=== PATIENT | male | born 1950 | race Caucasian/White ===

== ENCOUNTER 2016-08-14 09:51 | Emergency (ER) | payer OTHER ==
[~2016-08-14] VITALS: Ht 160 cm; Wt 79.8 kg
[~2016-08-14 09:51] MED LIST: ALFALFA1 EACH PO; ALPRAZOLAM0.25 M2 PO; ASPIR 8181 M1 PO; ASPIR-TRIN325 M1 PO; CARDIOVID PLUS1 EACH PO; CENTRUM SILVER1 EAC3 PO; GARLIC1 EACH PO; LISINOPRIL-HCT1 EACH PO; LISINOPRIL5 MG PO; METOPROLOL SUCC50 MG PO; NASACORT10.8 ML BOTH NARES; NASALCROM NASAL13 ML BOTH NARES; OMEGA-31000 M1 PO; OMEPRAZOLE20 MG PO; PERCOCET 5/31 TABLET PO; SIMVASTATIN20 MG PO; SIMVASTATIN40 MG PO; SYNTHROID100 MCG PO; ZOFRAN ODT4 MG PO
[2016-08-14] MEDS ORDERED: ZITHROMAX Z-PA250 MG PO (14:00)
[2016-08-14] MEDS ORDERED: VENTOLIN HFA18 GM IH (14:13)
[2016-08-14 15:38] VITALS: BP 124/74
== END 2016-08-14 15:38 | disposition home or self-care (01) ==
LOC: EME 09:51
DX: J06.9 Acute upper respiratory infection, unspecified (principal); J44.9 Chronic obstructive pulmonary disease, unspecified; I10 Essential (primary) hypertension; I25.2 Old myocardial infarction; K21.9 Gastro-esophageal reflux disease without esophagitis; Z87.442 Personal history of urinary calculi; Z87.891 Personal history of nicotine dependence; Z95.1 Presence of aortocoronary bypass graft
CPT/HCPCS: 71020; 87651 90; 99281; 99283

== ENCOUNTER → 2016-10-16 | Outpatient (CLI) | payer OTHER ==
[~2016-10-16] VITALS: Ht 160 cm; Wt 74.8 kg
[~2016-10-16] MED LIST changes: +VENTOLIN HFA18 GM IH; +ZITHROMAX Z-PA250 MG PO
[2016-10-16 09:44] LABS: HEMATOCRIT 58.4 % (38.0-50.0); MCH 23.9 PG (29.0-34.0); MCHC 31.8 G/DL (30.0-36.0); MCV 75.2 FL (86-99); MEAN PLAT.VOLUME 9.1 uM^3 (9.0-12.4); PLATELET COUNT 531 K/uL (156-360); RBC DIS.WIDTH-CV 19.8 % (11.8-14.6); RBC DIS.WIDTH-SD 46.9 % (39-53); RED BLOOD COUNT 7.77 M/uL (4.00-5.50); WHITE BLOOD COUNT 12.9 K/uL (4.1-10.2)
== END | disposition home or self-care (01) ==
LOC: EDSTATUS 10-05 09:00 → OPR 10-05 09:00
PROVIDERS: Internal Medicine Pulmonary Disease
PROC: 0BBF3ZX Excision of Right Lower Lung Lobe, Percutaneous Approach, Diagnostic (ICD-10-PCS; principal; 2016-10-16)
DX: C34.31 Malignant neoplasm of lower lobe, right bronchus or lung (principal); Z87.891 Personal history of nicotine dependence; I25.10 Atherosclerotic heart disease of native coronary artery without angina pectoris; R76.11 Nonspecific reaction to tuberculin skin test without active tuberculosis
CPT/HCPCS: 71010; 77012; 85027; 88305; 88341 TC; 88342 TC; J3010

== ENCOUNTER → 2016-11-01 | Outpatient (CLI) | payer OTHER ==
[2016-11-01 11:55] LABS: BASE EXCESS -0.7 mEq/L (-3 to +3); BICARBONATE 24.2 mEq/L (22-26); CARBOXY HGB 1.7 % (0-5); COMMENTS - BLOOD GASES A+C+; DEVICE RA; PCO2 40 mm Hg (35-45); PO2 71 mm Hg (80-100); SITE LR; TOTAL RESP RATE 18 resp/min; pH 7.39 (7.35-7.45)
== END | disposition home or self-care (01) ==
LOC: RES 11:36
PROVIDERS: Thoracic Surgery (Cardiothoracic Vascular Surgery)
DX: C34.90 Malignant neoplasm of unspecified part of unspecified bronchus or lung (principal)
CPT/HCPCS: 36600; 82803

== ENCOUNTER → 2016-11-15 | Outpatient (CLI) | payer OTHER, MEDICARE ==
[~2016-11-15] VITALS: Ht 160 cm; Wt 68.0 kg
[2016-11-15 10:22] LABS: INTER. NORMALIZED RATIO 1.2; PROTHROMBIN TIME 13.3 SEC (10.2-12.9)
[2016-11-15 10:25] LABS: PTT 34.9 SEC (25-37)
== END | disposition home or self-care (01) ==
LOC: OPR 09:12 → EDSTATUS 10:00
PROVIDERS: Radiology Diagnostic Radiology
PROC: 0BBJ3ZX Excision of Left Lower Lung Lobe, Percutaneous Approach, Diagnostic (ICD-10-PCS; principal; 2016-11-15)
DX: R91.8 Other nonspecific abnormal finding of lung field (principal); C34.91 Malignant neoplasm of unspecified part of right bronchus or lung; Z87.891 Personal history of nicotine dependence
CPT/HCPCS: 71010; 77012; 85610; 85730; 88305; 88312; 88342 TC; J3010

== ENCOUNTER → 2016-11-24 | Day surgery (SDC) | payer OTHER, MEDICARE ==
[~2016-11-24] VITALS: Ht 160 cm; Wt 69.8 kg
[2016-11-24 06:11] VITALS: BP 113/68
[2016-11-24 06:16] LABS: BASOPHIL COUNT 0.1 K/uL (0-0.1); EOSINOPHIL (%) 2.5 % (0-5); EOSINOPHIL COUNT 0.4 K/uL (0-0.3); HEMATOCRIT 57.9 % (38.0-50.0); IMMATURE GRANULOCYTE COUNT 0.3 K/uL; INSTRUMENT ABS NEUTROPHIL CT 10.9 K/uL; LYMPHOCYTE COUNT 1.6 K/uL (1.0-2.8); MCH 24.4 PG (29.0-34.0); MCHC 31.4 G/DL (30.0-36.0); MCV 77.5 FL (86-99); MEAN PLAT.VOLUME 8.9 uM^3 (9.0-12.4); MONOCYTE (%) 7.3 % (3-12); NEUTROPHIL (%) 76.3 % (45-76); NEUTROPHIL COUNT 10.9 K/uL (1.8-6.4); PLATELET COUNT 550 K/uL (156-360); RBC DIS.WIDTH-CV 20.2 % (11.8-14.6); RBC DIS.WIDTH-SD 51.4 % (39-53); RED BLOOD COUNT 7.47 M/uL (4.00-5.50); WHITE BLOOD COUNT 14.3 K/uL (4.1-10.2)
[2016-11-24 06:42] LABS: CHLORIDE 100 mEq/L (99-109); SODIUM 137 mEq/L (136-147)
[2016-11-24 06:44] LABS: GLUCOSE 101 mg/dL (70-99)
[2016-11-24 06:46] LABS: ANION GAP 15 MEQ/L (2-14)
[2016-11-24 06:48] LABS: ALKALINE PHOSPHATASE 68 IU/L (3-129); GFR ESTIMATE (CALCULATED) > 59 mL/min/
[2016-11-24 06:49] LABS: UREA NITROGEN (BUN) 9 mg/dL (9-23)
== END | disposition home or self-care (01) ==
LOC: SDC 05:24 → 2SOUTH 09:42 → EDSTATUS 09:42 → SDC 10:24
PROVIDERS: Thoracic Surgery (Cardiothoracic Vascular Surgery)
DX: Z53.8 Procedure and treatment not carried out for other reasons (principal)
CPT/HCPCS: 80053; 85025; 86850; 86900; 86901; J0330; J0690; J3010

== ENCOUNTER 2016-12-08 09:47 | Day surgery (SDC) | payer OTHER, MEDICARE ==
[~2016-12-08] VITALS: Ht 160 cm; Wt 72.7 kg
[2016-12-08 10:12] LABS: BASOPHIL COUNT 0.1 K/uL (0-0.1); EOSINOPHIL (%) 3.8 % (0-5); EOSINOPHIL COUNT 0.6 K/uL (0-0.3); HEMATOCRIT 57.1 % (38.0-50.0); IMMATURE GRANULOCYTE (%) 2.6 % (0.0-0.7); IMMATURE GRANULOCYTE COUNT 0.4 K/uL; INSTRUMENT ABS NEUTROPHIL CT 11.8 K/uL; LYMPHOCYTE COUNT 2.1 K/uL (1.0-2.8); MCH 24.8 PG (29.0-34.0); MCHC 31.2 G/DL (30.0-36.0); MCV 79.5 FL (86-99); MEAN PLAT.VOLUME 9.1 uM^3 (9.0-12.4); MONOCYTE COUNT 0.8 K/uL (0-0.8); NEUTROPHIL (%) 74.8 % (45-76); NEUTROPHIL COUNT 11.8 K/uL (1.8-6.4); PLATELET COUNT 683 K/uL (156-360); RBC DIS.WIDTH-CV 18.8 % (11.8-14.6); RBC DIS.WIDTH-SD 49.5 % (39-53); RED BLOOD COUNT 7.18 M/uL (4.00-5.50); WHITE BLOOD COUNT 15.7 K/uL (4.1-10.2)
[2016-12-08 10:17] LABS: INTER. NORMALIZED RATIO 1.2; PROTHROMBIN TIME 12.8 SEC (10.2-12.9)
[2016-12-08 10:19] VITALS: BP 118/74
[2016-12-08 10:20] LABS: CHLORIDE 102 mEq/L (99-109); POTASSIUM 4.3 mEq/L (3.7-5.4); PTT 34.4 SEC (25-37)
[2016-12-08 10:21] LABS: SODIUM 138 mEq/L (136-147)
[2016-12-08 10:23] LABS: GLUCOSE 106 mg/dL (70-99)
[2016-12-08 10:24] LABS: ANION GAP 9 MEQ/L (2-14)
[2016-12-08 10:25] LABS: TOTAL BILIRUBIN 0.6 mg/dL (0.0-1.0)
[2016-12-08 10:26] LABS: ALKALINE PHOSPHATASE 62 IU/L (3-129); GFR ESTIMATE (CALCULATED) > 59 mL/min/
[2016-12-08 10:28] LABS: UREA NITROGEN (BUN) 11 mg/dL (9-23)
[2016-12-08 10:53] LABS: POINT-OF-CARE METER ID UU14174212
[2016-12-08] MEDS ORDERED: COLACE100 MG PO (13:48)
[2016-12-08] MEDS ORDERED: HYDROCODON-ACE1 EAC7 PO (13:48)
[2016-12-08 14:35] VITALS: BP 124/71
[2016-12-08 15:21] VITALS: BP 128/65
== END 2016-12-08 15:25 | disposition home or self-care (01) ==
LOC: SDC 09:47
PROVIDERS: Thoracic Surgery (Cardiothoracic Vascular Surgery)
PROC: 0WJC4ZZ Inspection of Mediastinum, Percutaneous Endoscopic Approach (ICD-10-PCS; principal; 2016-12-08)
DX: C34.31 Malignant neoplasm of lower lobe, right bronchus or lung (principal); J98.59 Other diseases of mediastinum, not elsewhere classified; D45 Polycythemia vera; I25.10 Atherosclerotic heart disease of native coronary artery without angina pectoris; I25.2 Old myocardial infarction; E11.9 Type 2 diabetes mellitus without complications; K21.9 Gastro-esophageal reflux disease without esophagitis; J44.9 Chronic obstructive pulmonary disease, unspecified; E78.5 Hyperlipidemia, unspecified; D50.9 Iron deficiency anemia, unspecified; E83.52 Hypercalcemia; Z95.1 Presence of aortocoronary bypass graft; Z87.891 Personal history of nicotine dependence; H91.90 Unspecified hearing loss, unspecified ear; Z86.19 Personal history of other infectious and parasitic diseases; Z87.11 Personal history of peptic ulcer disease; Z87.442 Personal history of urinary calculi; Z87.820 Personal history of traumatic brain injury; Z82.3 Family history of stroke; Z82.49 Family history of ischemic heart disease and other diseases of the circulatory system; Z83.3 Family history of diabetes mellitus
CPT/HCPCS: 80053; 82948; 85025; 85610; 85730; 86850; 86900; 86901; J0330; J0690; J1100; J2250; J2405; J2710; J3010

== ENCOUNTER 2016-12-21 23:26 | Inpatient (IN) | payer OTHER, MEDICARE ==
[~2016-12-21] VITALS: Ht 160 cm; Wt 67.6 kg
[~2016-12-21 23:26] MED LIST changes: +ALFALFA PO; +COLACE100 MG PO; +HYDROCODON-ACE1 EAC7 PO; +IRON325 M1 PO; +LIPITOR40 MG PO
[2016-12-22 05:46] VITALS: BP 126/84
[2016-12-22 06:56] LABS: INTER. NORMALIZED RATIO 1.2; PROTHROMBIN TIME 14.1 SEC (10.2-12.9)
[2016-12-22 06:59] LABS: PTT 37.1 SEC (25-37)
[2016-12-22 12:40] LABS: BASE EXCESS -3.9 mEq/L (-3 to +3); BICARBONATE 21.6 mEq/L (22-26); CARBOXY HGB 1.7 % (0-5); METHEMOGLOBIN 1.9 % (0-1.5); PCO2 40 mm Hg (35-45); pH 7.34 (7.35-7.45)
[2016-12-22 12:41] LABS: DEVICE PB 980; FI02 70 %; MODE SIMV PC; O2 FLOW 65 L/MIN; PO2 284 mm Hg (80-100); SITE RFEM
[2016-12-22 12:42] LABS: INSPIRATION TIME 1.45 seconds; MECHANICAL RATE 12 resp/min; PEEP 5 CM/H20; PRES. SUPPORT 5 CM/H2O; PRESSURE CONTROL VENTILATION 18 CM H20; TOTAL RESP RATE 15 resp/min
[2016-12-22 13:36] LABS: BASE EXCESS -3.9 mEq/L (-3 to +3); BICARBONATE 20.8 mEq/L (22-26); DEVICE PB 980; FI02 50 %; METHEMOGLOBIN 1.9 % (0-1.5); O2 FLOW 60 L/MIN; PCO2 36 mm Hg (35-45); PO2 194 mm Hg (80-100); SITE R FEM; pH 7.37 (7.35-7.45)
[2016-12-22 13:37] LABS: INSPIRATION TIME 1.45 seconds; MECHANICAL RATE 12 resp/min; MODE SIMV PC; PEEP 5 CM/H20; PRES. SUPPORT 5 CM/H2O; PRESSURE CONTROL VENTILATION 18 CM H20; TOTAL RESP RATE 20 resp/min
[2016-12-22 16:00] LABS: HEMATOCRIT 41.8 % (38.0-50.0); MCV 80.1 FL (86-99)
[2016-12-22 17:27] LABS: INTER. NORMALIZED RATIO 1.5; PROTHROMBIN TIME 16.9 SEC (10.2-12.9)
[2016-12-22 19:48] LABS: HEMATOCRIT 32.2 % (38.0-50.0); MCV 81.5 FL (86-99)
[2016-12-22 20:33] LABS: EOSINOPHIL (%) 0 % (0-5); IMMATURE GRANULOCYTE (%) 1.3 % (0.0-0.7); IMMATURE GRANULOCYTE COUNT 0.3 K/uL; INSTRUMENT ABS NEUTROPHIL CT 22.2 K/uL; LYMPHOCYTE COUNT 0.4 K/uL (1.0-2.8); MCH 25.2 PG (29.0-34.0); MEAN PLAT.VOLUME 9.5 uM^3 (9.0-12.4); MONOCYTE (%) 3.5 % (3-12); MONOCYTE COUNT 0.8 K/uL (0-0.8); NEUTROPHIL (%) 93.3 % (45-76); NEUTROPHIL COUNT 22.2 K/uL (1.8-6.4); PLATELET COUNT 743 K/uL (156-360); RBC DIS.WIDTH-CV 16.1 % (11.8-14.6); RBC DIS.WIDTH-SD 48.3 % (39-53); WHITE BLOOD COUNT 23.8 K/uL (4.1-10.2)
[2016-12-22 20:39] LABS: RED BLOOD COUNT 3.97 M/uL (4.00-5.50)
[2016-12-23] VITALS (37 sets, daily range): BP systolic 73–143; BP diastolic 43–86
[2016-12-23 01:30] LABS: BASE EXCESS -6.6 mEq/L (-3 to +3); CARBOXY HGB 2.6 % (0-5); DEVICE VENT; FI02 40 %; METHEMOGLOBIN 1.9 % (0-1.5); MODE AC; PCO2 49 mm Hg (35-45); PO2 111 mm Hg (80-100); SITE LB; pH 7.24 (7.35-7.45)
[2016-12-23 01:31] LABS: MECHANICAL RATE 12 resp/min; PEEP 5 CM/H20; TIDAL VOLUME 500 ML; TOTAL RESP RATE 12 resp/min
[2016-12-23 01:49] LABS: HEMATOCRIT 39.5 % (38.0-50.0); MCV 84.8 FL (86-99)
[2016-12-23 02:48] LABS: METH RESISTANT S AUREUS PCR NEGATIVE (NEGATIVE)
[2016-12-23 02:56] LABS: PROBE CHECK PASS; SPECIMEN PROCESSING CONTROL PASS
[2016-12-23 06:49] LABS: BASOPHIL COUNT 0.1 K/uL (0-0.1); EOSINOPHIL (%) 0.1 % (0-5); HEMATOCRIT 41.3 % (38.0-50.0); IMMATURE GRANULOCYTE (%) 1.7 % (0.0-0.7); IMMATURE GRANULOCYTE COUNT 0.4 K/uL; LYMPHOCYTE COUNT 1.7 K/uL (1.0-2.8); MCH 27.2 PG (29.0-34.0); MCHC 32.4 G/DL (30.0-36.0); MCV 83.9 FL (86-99); MEAN PLAT.VOLUME 9.5 uM^3 (9.0-12.4); MONOCYTE (%) 8.5 % (3-12); MONOCYTE COUNT 2.1 K/uL (0-0.8); NEUTROPHIL (%) 82.3 % (45-76); PLATELET COUNT 593 K/uL (156-360); RBC DIS.WIDTH-CV 15.9 % (11.8-14.6); RBC DIS.WIDTH-SD 48.9 % (39-53); WHITE BLOOD COUNT 24.3 K/uL (4.1-10.2)
[2016-12-23 06:50] LABS: RED BLOOD COUNT 4.92 M/uL (4.00-5.50)
[2016-12-23 07:12] LABS: ANION GAP 12 MEQ/L (2-14); CHLORIDE 107 MEQ/L (99-109); GFR ESTIMATE (CALCULATED) > 59 mL/min/; GLUCOSE 165 mg/dL (70-99); POTASSIUM 4.5 MEQ/L (3.7-5.4); SAMPLE HEMOLYSIS CHECK 0; SAMPLE ICTERIC CHECK 0; SAMPLE LIPEMIA CHECK 0; SODIUM 137 MEQ/L (136-147); UREA NITROGEN (BUN) 16 mg/dL (9-23)
[2016-12-23 18:17] LABS: Estimated Average Glucose 117 mg/dL (70-123); HEMOGLOBIN A1c (GLYCOHEMOGLOB) 5.7 % HGB (Below 5.7)
[2016-12-23 18:37] LABS: INTER. NORMALIZED RATIO 1.4; PROTHROMBIN TIME 15.9 SEC (10.2-12.9)
[2016-12-23 18:39] LABS: HDL CHOLESTEROL 13 MG/DL (Desirable>=40); LDL CHOLESTEROL 11 mg/dL (Desirable<100); NON-HDL CHOLESTEROL 33 mg/dL (Desirable<160); TOTAL CHOLESTEROL 46 mg/dL (Desirable<200); TRIGLYCERIDES 108 MG/DL (Normal: <150)
[2016-12-24] VITALS (24 sets, daily range): BP systolic 88–170; BP diastolic 58–100
[2016-12-24 05:30] LABS: HEMATOCRIT 34.3 % (38.0-50.0); MCH 28.6 PG (29.0-34.0); MCHC 33.8 G/DL (30.0-36.0); MCV 84.7 FL (86-99); MEAN PLAT.VOLUME 9.6 uM^3 (9.0-12.4); PLATELET COUNT 479 K/uL (156-360); RBC DIS.WIDTH-CV 17.2 % (11.8-14.6); RBC DIS.WIDTH-SD 52.3 % (39-53); RED BLOOD COUNT 4.05 M/uL (4.00-5.50); WHITE BLOOD COUNT 17.6 K/uL (4.1-10.2)
[2016-12-24 06:12] LABS: ANION GAP 7 MEQ/L (2-14); CHLORIDE 109 MEQ/L (99-109); GFR ESTIMATE (CALCULATED) > 59 mL/min/; POTASSIUM 4.1 MEQ/L (3.7-5.4); SAMPLE HEMOLYSIS CHECK 0; SAMPLE ICTERIC CHECK 0; SAMPLE LIPEMIA CHECK 0; SODIUM 139 MEQ/L (136-147); UREA NITROGEN (BUN) 12 mg/dL (9-23)
[2016-12-24 06:13] LABS: GLUCOSE 105 mg/dL (70-99)
[2016-12-24 18:24] LABS: POINT-OF-CARE METER ID UU14314083
[2016-12-25] VITALS (21 sets, daily range): BP systolic 85–164; BP diastolic 46–92
[2016-12-25 03:24] LABS: POINT-OF-CARE METER ID UU14314083
[2016-12-25 05:28] LABS: HEMATOCRIT 38.7 % (38.0-50.0); MCH 27.7 PG (29.0-34.0); MCHC 32.3 G/DL (30.0-36.0); MCV 85.8 FL (86-99); MEAN PLAT.VOLUME 9.5 uM^3 (9.0-12.4); PLATELET COUNT 526 K/uL (156-360); RBC DIS.WIDTH-CV 17.2 % (11.8-14.6); RBC DIS.WIDTH-SD 54.4 % (39-53); RED BLOOD COUNT 4.51 M/uL (4.00-5.50); WHITE BLOOD COUNT 15.4 K/uL (4.1-10.2)
[2016-12-25 05:55] LABS: ANION GAP 8 MEQ/L (2-14); CHLORIDE 111 MEQ/L (99-109); GFR ESTIMATE (CALCULATED) > 59 mL/min/; GLUCOSE 152 mg/dL (70-99); POTASSIUM 4.5 MEQ/L (3.7-5.4); SAMPLE HEMOLYSIS CHECK 0; SAMPLE ICTERIC CHECK 0; SAMPLE LIPEMIA CHECK 0; SODIUM 142 MEQ/L (136-147); UREA NITROGEN (BUN) 14 mg/dL (9-23)
[2016-12-25 06:44] LABS: POINT-OF-CARE METER ID UU14208751
[2016-12-25 08:21] LABS: MAGNESIUM 1.8 mg/dl (1.3-2.7)
[2016-12-25 12:15] LABS: POINT-OF-CARE METER ID UU14314083
[2016-12-25 18:15] LABS: POINT-OF-CARE METER ID UU14208751
[2016-12-26] VITALS (24 sets, daily range): BP systolic 96–154; BP diastolic 56–97
[2016-12-26 00:05] LABS: POINT-OF-CARE METER ID UU14208751
[2016-12-26 05:34] LABS: POINT-OF-CARE METER ID UU14174217
[2016-12-26 08:12] LABS: BASOPHIL COUNT 0.1 K/uL (0-0.1); EOSINOPHIL (%) 0 % (0-5); IMMATURE GRANULOCYTE (%) 3.6 % (0.0-0.7); IMMATURE GRANULOCYTE COUNT 1.5 K/uL; LYMPHOCYTE COUNT 1.1 K/uL (1.0-2.8); MONOCYTE (%) 3.9 % (3-12); MONOCYTE COUNT 1.6 K/uL (0-0.8); NEUTROPHIL (%) 89.7 % (45-76)
[2016-12-26 08:17] LABS: HEMATOCRIT 39.3 % (38.0-50.0); MCH 28.4 PG (29.0-34.0); MCHC 33.1 G/DL (30.0-36.0); NRBC (%) 0.1 /100 WBC (0-0); RBC DIS.WIDTH-CV 17.7 % (11.8-14.6); RBC DIS.WIDTH-SD 55.5 % (39-53); RED BLOOD COUNT 4.57 M/uL (4.00-5.50); WHITE BLOOD COUNT 41.4 K/uL (4.1-10.2)
[2016-12-26 08:46] LABS: ANION GAP 9 MEQ/L (2-14); CHLORIDE 110 MEQ/L (99-109); GFR ESTIMATE (CALCULATED) > 59 mL/min/; GLUCOSE 159 mg/dL (70-99); POTASSIUM 4.5 MEQ/L (3.7-5.4); SAMPLE HEMOLYSIS CHECK 0; SAMPLE ICTERIC CHECK 0; SAMPLE LIPEMIA CHECK 0; SODIUM 142 MEQ/L (136-147)
[2016-12-26 08:47] LABS: MAGNESIUM 2.3 mg/dl (1.3-2.7); UREA NITROGEN (BUN) 23 mg/dL (9-23)
[2016-12-26 09:12] LABS: MEAN PLAT.VOLUME 9.9 uM^3 (9.0-12.4); PLATELET COUNT 1129 K/uL (156-360)
[2016-12-26 11:46] LABS: POINT-OF-CARE METER ID UU14174217
[2016-12-26 13:20] LABS: MEAN PLAT.VOLUME 9.3 uM^3 (9.0-12.4); PLATELET COUNT 882 K/uL (156-360)
[2016-12-26 13:34] LABS: HEMATOCRIT 40.1 % (38.0-50.0); MCH 27.3 PG (29.0-34.0); MCHC 31.9 G/DL (30.0-36.0); MCV 85.5 FL (86-99); NRBC (%) 0.1 /100 WBC (0-0); RBC DIS.WIDTH-CV 17.5 % (11.8-14.6); RBC DIS.WIDTH-SD 54.7 % (39-53); RED BLOOD COUNT 4.69 M/uL (4.00-5.50)
[2016-12-26 13:35] LABS: WHITE BLOOD COUNT 30.9 K/uL (4.1-10.2)
[2016-12-26 17:59] LABS: POINT-OF-CARE METER ID UU14174217
[2016-12-27] VITALS (18 sets, daily range): BP systolic 92–161; BP diastolic 57–112
[2016-12-27 00:25] LABS: POINT-OF-CARE METER ID UU14174217
[2016-12-27 06:32] LABS: EOSINOPHIL (%) 0 % (0-5); HEMATOCRIT 35.3 % (38.0-50.0); IMMATURE GRANULOCYTE (%) 1.4 % (0.0-0.7); IMMATURE GRANULOCYTE COUNT 0.2 K/uL; INSTRUMENT ABS NEUTROPHIL CT 15.3 K/uL; INTER. NORMALIZED RATIO 1.2; LYMPHOCYTE COUNT 0.5 K/uL (1.0-2.8); MCH 28.1 PG (29.0-34.0); MCHC 32.6 G/DL (30.0-36.0); MCV 86.3 FL (86-99); MONOCYTE (%) 5.3 % (3-12); MONOCYTE COUNT 0.9 K/uL (0-0.8); NEUTROPHIL (%) 90.2 % (45-76); NEUTROPHIL COUNT 15.3 K/uL (1.8-6.4); PROTHROMBIN TIME 14.2 SEC (10.2-12.9); RBC DIS.WIDTH-CV 17.2 % (11.8-14.6); RBC DIS.WIDTH-SD 55.1 % (39-53); RED BLOOD COUNT 4.09 M/uL (4.00-5.50); WHITE BLOOD COUNT 16.9 K/uL (4.1-10.2)
[2016-12-27 06:35] LABS: ALKALINE PHOSPHATASE 41 IU/L (3-129); ANION GAP 6 MEQ/L (2-14); CHLORIDE 109 MEQ/L (99-109); GFR ESTIMATE (CALCULATED) > 59 mL/min/; GLUCOSE 174 mg/dL (70-99); MAGNESIUM 2.1 mg/dl (1.3-2.7); POTASSIUM 4.2 MEQ/L (3.7-5.4); SAMPLE HEMOLYSIS CHECK 0; SAMPLE ICTERIC CHECK 0; SAMPLE LIPEMIA CHECK 0; SODIUM 144 MEQ/L (136-147); TOTAL BILIRUBIN 0.5 MG/DL (0.0-1.0); UREA NITROGEN (BUN) 29 mg/dL (9-23)
[2016-12-27 06:46] LABS: MEAN PLAT.VOLUME 9.4 uM^3 (9.0-12.4); PLAT.SUFFICIENCY INCREASED
[2016-12-27 06:46] LABS: POINT-OF-CARE METER ID UU14208751
[2016-12-27 06:54] LABS: PLATELET COUNT 586 K/uL (156-360)
[2016-12-27 12:15] LABS: POINT-OF-CARE METER ID UU14208751
[2016-12-27 17:11] LABS: POINT-OF-CARE METER ID UU14208751
[2016-12-28] VITALS (18 sets, daily range): BP systolic 93–157; BP diastolic 53–97
[2016-12-28 00:23] LABS: POINT-OF-CARE METER ID UU14208751
[2016-12-28 05:25] LABS: EOSINOPHIL (%) 0.3 % (0-5); IMMATURE GRANULOCYTE (%) 1.9 % (0.0-0.7); IMMATURE GRANULOCYTE COUNT 0.3 K/uL; INSTRUMENT ABS NEUTROPHIL CT 14.1 K/uL; LYMPHOCYTE COUNT 0.8 K/uL (1.0-2.8); MCH 26.9 PG (29.0-34.0); MCHC 31.1 G/DL (30.0-36.0); MCV 86.3 FL (86-99); MEAN PLAT.VOLUME 9.5 uM^3 (9.0-12.4); MONOCYTE (%) 4.9 % (3-12); MONOCYTE COUNT 0.8 K/uL (0-0.8); NEUTROPHIL (%) 87.9 % (45-76); NEUTROPHIL COUNT 14.1 K/uL (1.8-6.4); PLATELET COUNT 641 K/uL (156-360); RBC DIS.WIDTH-CV 16.8 % (11.8-14.6); RBC DIS.WIDTH-SD 53.1 % (39-53); RED BLOOD COUNT 4.17 M/uL (4.00-5.50)
[2016-12-28 05:51] LABS: ANION GAP 9 MEQ/L (2-14); CHLORIDE 107 MEQ/L (99-109); GFR ESTIMATE (CALCULATED) > 59 mL/min/; GLUCOSE 189 mg/dL (70-99); POTASSIUM 4.3 MEQ/L (3.7-5.4); SAMPLE HEMOLYSIS CHECK 0; SAMPLE ICTERIC CHECK 0; SAMPLE LIPEMIA CHECK 0; SODIUM 145 MEQ/L (136-147); UREA NITROGEN (BUN) 32 mg/dL (9-23)
[2016-12-28 12:17] LABS: POINT-OF-CARE METER ID UU14314082
[2016-12-28 18:09] LABS: POINT-OF-CARE METER ID UU14314082
[2016-12-29] VITALS (24 sets, daily range): BP systolic 101–163; BP diastolic 54–102
[2016-12-29 00:07] LABS: POINT-OF-CARE METER ID UU14314082
[2016-12-29 05:21] LABS: BASE EXCESS 11.9 mEq/L (-3 to +3); BICARBONATE 35.9 mEq/L (22-26); CARBOXY HGB 2.1 % (0-5); COMMENTS - BLOOD GASES C+A+; DEVICE VENTILATOR; FI02 30 %; MECHANICAL RATE 12 resp/min; METHEMOGLOBIN 1.6 % (0-1.5); MODE A/C; PCO2 43 mm Hg (35-45); PO2 78 mm Hg (80-100); SITE LR; pH 7.53 (7.35-7.45)
[2016-12-29 05:22] LABS: PEEP 5 CM/H20; TIDAL VOLUME 500 ML; TOTAL RESP RATE 28 resp/min
[2016-12-29 06:01] LABS: EOSINOPHIL (%) 0.4 % (0-5); HEMATOCRIT 34.8 % (38.0-50.0); IMMATURE GRANULOCYTE (%) 3.3 % (0.0-0.7); IMMATURE GRANULOCYTE COUNT 0.4 K/uL; INSTRUMENT ABS NEUTROPHIL CT 9.2 K/uL; LYMPHOCYTE COUNT 0.5 K/uL (1.0-2.8); MCH 27.2 PG (29.0-34.0); MCHC 31.6 G/DL (30.0-36.0); MCV 85.9 FL (86-99); MEAN PLAT.VOLUME 9.6 uM^3 (9.0-12.4); MONOCYTE (%) 4.1 % (3-12); MONOCYTE COUNT 0.4 K/uL (0-0.8); NEUTROPHIL (%) 87.7 % (45-76); NEUTROPHIL COUNT 9.2 K/uL (1.8-6.4); PLATELET COUNT 478 K/uL (156-360); RBC DIS.WIDTH-CV 16.6 % (11.8-14.6); RBC DIS.WIDTH-SD 52.1 % (39-53); RED BLOOD COUNT 4.05 M/uL (4.00-5.50); WHITE BLOOD COUNT 10.5 K/uL (4.1-10.2)
[2016-12-29 07:09] LABS: ANION GAP 8 MEQ/L (2-14); CHLORIDE 105 MEQ/L (99-109); GFR ESTIMATE (CALCULATED) > 59 mL/min/; GLUCOSE 209 mg/dL (70-99); SAMPLE HEMOLYSIS CHECK 0; SAMPLE ICTERIC CHECK 0; SAMPLE LIPEMIA CHECK 0; SODIUM 145 MEQ/L (136-147); UREA NITROGEN (BUN) 36 mg/dL (9-23)
[2016-12-29 07:34] LABS: DIGOXIN 0.8 ng/mL (0.8-2.0)
[2016-12-29 13:33] LABS: POINT-OF-CARE METER ID UU14174217
[2016-12-29 17:02] LABS: POINT-OF-CARE METER ID UU14174217
[2016-12-29 23:55] LABS: POINT-OF-CARE METER ID UU14174217
[2016-12-30] VITALS (9 sets, daily range): BP systolic 94–154; BP diastolic 59–97
[2016-12-30 07:10] LABS: EOSINOPHIL (%) 0.6 % (0-5); EOSINOPHIL COUNT 0.1 K/uL (0-0.3); HEMATOCRIT 37.2 % (38.0-50.0); IMMATURE GRANULOCYTE (%) 3.8 % (0.0-0.7); IMMATURE GRANULOCYTE COUNT 0.5 K/uL; INSTRUMENT ABS NEUTROPHIL CT 11.7 K/uL; LYMPHOCYTE COUNT 0.5 K/uL (1.0-2.8); MCH 26.8 PG (29.0-34.0); MCHC 31.2 G/DL (30.0-36.0); MCV 85.9 FL (86-99); MEAN PLAT.VOLUME 9.6 uM^3 (9.0-12.4); MONOCYTE (%) 4.7 % (3-12); MONOCYTE COUNT 0.6 K/uL (0-0.8); NEUTROPHIL (%) 86.8 % (45-76); NEUTROPHIL COUNT 11.7 K/uL (1.8-6.4); NRBC (%) 0.1 /100 WBC (0-0); PLATELET COUNT 545 K/uL (156-360); RBC DIS.WIDTH-SD 49.9 % (39-53); RED BLOOD COUNT 4.33 M/uL (4.00-5.50); WHITE BLOOD COUNT 13.5 K/uL (4.1-10.2)
[2016-12-30 07:34] LABS: ANION GAP 5 MEQ/L (2-14); CHLORIDE 108 MEQ/L (99-109); GFR ESTIMATE (CALCULATED) > 59 mL/min/; GLUCOSE 124 mg/dL (70-99); MAGNESIUM 2.2 mg/dl (1.3-2.7); SAMPLE HEMOLYSIS CHECK 0; SAMPLE ICTERIC CHECK 0; SAMPLE LIPEMIA CHECK 0; SODIUM 145 MEQ/L (136-147); UREA NITROGEN (BUN) 28 mg/dL (9-23)
[2016-12-30 11:57] LABS: POINT-OF-CARE METER ID UU14208751
[2016-12-30 17:01] LABS: POINT-OF-CARE METER ID UU14162636
[2016-12-30 22:07] LABS: POINT-OF-CARE METER ID UU13113748
[2016-12-31] VITALS (9 sets, daily range): BP systolic 118–166; BP diastolic 76–107
[2016-12-31 08:03] LABS: POINT-OF-CARE METER ID UU13113731
[2016-12-31 12:15] LABS: POINT-OF-CARE METER ID UU13113731
[2016-12-31 19:17] LABS: POINT-OF-CARE METER ID UU14174217
[2016-12-31 21:56] LABS: POINT-OF-CARE METER ID UU14162636
[2017-01-01] VITALS (14 sets, daily range): BP systolic 111–176; BP diastolic 65–95
[2017-01-01 01:09] LABS: TROP-I INTERPRETATION POSITIVE
[2017-01-01 01:12] LABS: TROPONIN-I 2.76 ng/mL (0.0-0.30)
[2017-01-01 05:36] LABS: HEMATOCRIT 36.8 % (38.0-50.0); MCH 27.6 PG (29.0-34.0); MCHC 32.6 G/DL (30.0-36.0); MCV 84.6 FL (86-99); MEAN PLAT.VOLUME 9.9 uM^3 (9.0-12.4); NRBC (%) 0.2 /100 WBC (0-0); PLATELET COUNT 519 K/uL (156-360); RBC DIS.WIDTH-SD 48.6 % (39-53); RED BLOOD COUNT 4.35 M/uL (4.00-5.50); WHITE BLOOD COUNT 12.7 K/uL (4.1-10.2)
[2017-01-01 05:58] LABS: TROP-I INTERPRETATION POSITIVE
[2017-01-01 06:07] LABS: ANION GAP 5 MEQ/L (2-14); CHLORIDE 103 MEQ/L (99-109); GFR ESTIMATE (CALCULATED) > 59 mL/min/; GLUCOSE 111 mg/dL (70-99); POTASSIUM 3.8 MEQ/L (3.7-5.4); SAMPLE HEMOLYSIS CHECK 0; SAMPLE ICTERIC CHECK 0; SAMPLE LIPEMIA CHECK 0; SODIUM 138 MEQ/L (136-147); UREA NITROGEN (BUN) 19 mg/dL (9-23)
[2017-01-01 07:02] LABS: ABS NEUTROPHIL COUNT 11.9; ANISOCYTOSIS 1+; EOSINOPHIL ABS CT 0.1; EOSINOPHILS 0.9 % (0-5.0); INSTRUMENT ABS NEUTROPHIL CT 9.8 K/uL; LYMPHOCYTES 1.7 % (15.0-45.0); NUCLEATED RBC'S 0.9; PLAT.SUFFICIENCY INCREASED; POLYCHROMASIA 1+; SEG.NEUTROPHILS 87.9 % (46.0-76.0)
[2017-01-01 10:46] LABS: TROP-I INTERPRETATION POSITIVE; TROPONIN-I 2.94 ng/mL (0.0-0.30)
[2017-01-01 12:16] LABS: POINT-OF-CARE METER ID UU13113731
[2017-01-02] VITALS (8 sets, daily range): BP systolic 104–128; BP diastolic 66–93
[2017-01-02 06:27] LABS: ANION GAP 9 MEQ/L (2-14); CHLORIDE 105 MEQ/L (99-109); GFR ESTIMATE (CALCULATED) > 59 mL/min/; GLUCOSE 107 mg/dL (70-99); SAMPLE HEMOLYSIS CHECK 0; SAMPLE ICTERIC CHECK 0; SAMPLE LIPEMIA CHECK 0; SODIUM 140 MEQ/L (136-147); UREA NITROGEN (BUN) 16 mg/dL (9-23)
[2017-01-02 06:44] LABS: HEMATOCRIT 34.1 % (38.0-50.0); MCH 27.6 PG (29.0-34.0); MCHC 33.7 G/DL (30.0-36.0); MEAN PLAT.VOLUME 10.1 uM^3 (9.0-12.4); NRBC (%) 0.2 /100 WBC (0-0); PLATELET COUNT 614 K/uL (156-360); RBC DIS.WIDTH-CV 16.3 % (11.8-14.6); RED BLOOD COUNT 4.16 M/uL (4.00-5.50); WHITE BLOOD COUNT 19.3 K/uL (4.1-10.2)
[2017-01-03] VITALS (7 sets, daily range): BP systolic 96–148; BP diastolic 59–79
[2017-01-03 10:59] LABS: ANION GAP 9 MEQ/L (2-14); CHLORIDE 103 MEQ/L (99-109); GFR ESTIMATE (CALCULATED) > 59 mL/min/; POTASSIUM 3.9 MEQ/L (3.7-5.4); SAMPLE HEMOLYSIS CHECK 0; SAMPLE ICTERIC CHECK 0; SAMPLE LIPEMIA CHECK 0; SODIUM 139 MEQ/L (136-147); UREA NITROGEN (BUN) 14 mg/dL (9-23)
[2017-01-03 11:04] LABS: GLUCOSE 175 mg/dL (70-99)
[2017-01-04] VITALS (7 sets, daily range): BP systolic 114–142; BP diastolic 57–73
[2017-01-04 05:07] LABS: HEMATOCRIT 35.4 % (38.0-50.0); MCH 26.9 PG (29.0-34.0); MCHC 31.6 G/DL (30.0-36.0); MCV 84.9 FL (86-99); MEAN PLAT.VOLUME 10.6 uM^3 (9.0-12.4); NRBC (%) 0.1 /100 WBC (0-0); PLATELET COUNT 526 K/uL (156-360); RBC DIS.WIDTH-CV 18.2 % (11.8-14.6); RBC DIS.WIDTH-SD 51.5 % (39-53); RED BLOOD COUNT 4.17 M/uL (4.00-5.50); WHITE BLOOD COUNT 20.2 K/uL (4.1-10.2)
[2017-01-04 05:14] LABS: CHLORIDE 104 mEq/L (99-109); POTASSIUM 4.1 mEq/L (3.7-5.4); SODIUM 138 mEq/L (136-147)
[2017-01-04 05:16] LABS: GLUCOSE 136 mg/dL (70-99)
[2017-01-04 05:17] LABS: ANION GAP 10 MEQ/L (2-14)
[2017-01-04 05:18] LABS: TOTAL BILIRUBIN 0.7 mg/dL (0.0-1.0)
[2017-01-04 05:19] LABS: ALKALINE PHOSPHATASE 140 IU/L (3-129)
[2017-01-04 05:20] LABS: GFR ESTIMATE (CALCULATED) > 59 mL/min/
[2017-01-04 05:21] LABS: UREA NITROGEN (BUN) 15 mg/dL (9-23)
[2017-01-04 06:51] LABS: ABS NEUTROPHIL COUNT 18.4; ATYPICAL LYMPHOCYTE 0.9 %; BAND NEUTROPHILS 1.8 % (0-8.0); EOSINOPHIL ABS CT 0.3; EOSINOPHILS 1.7 % (0-5.0); INSTRUMENT ABS NEUTROPHIL CT 16.4 K/uL; LYMPHOCYTES 1.8 % (15.0-45.0); SEG.NEUTROPHILS 89.4 % (46.0-76.0)
[2017-01-04 16:02] LABS: TROP-I INTERPRETATION POSITIVE; TROPONIN-I 0.74 ng/mL (0.0-0.30)
[2017-01-04 21:34] LABS: TROP-I INTERPRETATION POSITIVE; TROPONIN-I 0.76 ng/mL (0.0-0.30)
[2017-01-05 04:55] VITALS: BP 139/71
[2017-01-05 05:43] LABS: TROP-I INTERPRETATION POSITIVE; TROPONIN-I 0.66 ng/mL (0.0-0.30)
[2017-01-05 08:07] VITALS: BP 148/71
[2017-01-05 10:50] LABS: ANION GAP 9 MEQ/L (2-14); CHLORIDE 105 MEQ/L (99-109); POTASSIUM 3.8 MEQ/L (3.7-5.4); SAMPLE HEMOLYSIS CHECK 0; SAMPLE ICTERIC CHECK 0; SAMPLE LIPEMIA CHECK 0; SODIUM 138 MEQ/L (136-147); TOTAL BILIRUBIN 0.5 MG/DL (0.0-1.0)
[2017-01-05 10:56] LABS: ALKALINE PHOSPHATASE 141 IU/L (3-129); GFR ESTIMATE (CALCULATED) > 59 mL/min/; GLUCOSE 187 mg/dL (70-99); UREA NITROGEN (BUN) 13 mg/dL (9-23)
[2017-01-05 11:04] VITALS: BP 128/62
[2017-01-05 16:42] VITALS: BP 141/76
[2017-01-05 20:00] VITALS: BP 142/82
[2017-01-05 23:55] VITALS: BP 145/75
[2017-01-06 04:06] VITALS: BP 142/68
[2017-01-06 06:47] LABS: ALKALINE PHOSPHATASE 130 IU/L (3-129); ANION GAP 7 MEQ/L (2-14); CHLORIDE 105 MEQ/L (99-109); GFR ESTIMATE (CALCULATED) > 59 mL/min/; POTASSIUM 3.7 MEQ/L (3.7-5.4); SAMPLE HEMOLYSIS CHECK 0; SAMPLE ICTERIC CHECK 0; SAMPLE LIPEMIA CHECK 0; SODIUM 138 MEQ/L (136-147); UREA NITROGEN (BUN) 11 mg/dL (9-23)
[2017-01-06 06:54] LABS: GLUCOSE 102 mg/dL (70-99); TOTAL BILIRUBIN 0.7 MG/DL (0.0-1.0)
[2017-01-06 08:45] VITALS: BP 141/67
[2017-01-06 12:15] VITALS: BP 134/60
[2017-01-06 16:30] VITALS: BP 128/59
[2017-01-06 20:00] VITALS: BP 139/67
[2017-01-06 23:55] VITALS: BP 130/63
[2017-01-07 04:00] VITALS: BP 139/75
[2017-01-07 05:49] LABS: HEMATOCRIT 38.4 % (38.0-50.0); MCH 27.8 PG (29.0-34.0); MCHC 31.5 G/DL (30.0-36.0); MCV 88.1 FL (86-99); MEAN PLAT.VOLUME 10.2 uM^3 (9.0-12.4); PLATELET COUNT 447 K/uL (156-360); RBC DIS.WIDTH-CV 20.3 % (11.8-14.6); RBC DIS.WIDTH-SD 61.6 % (39-53); RED BLOOD COUNT 4.36 M/uL (4.00-5.50); WHITE BLOOD COUNT 15.2 K/uL (4.1-10.2)
[2017-01-07 07:18] VITALS: BP 127/67
[2017-01-07 11:22] VITALS: BP 129/60
[2017-01-07 16:24] VITALS: BP 137/65
[2017-01-07 20:00] VITALS: BP 113/62
[2017-01-08] VITALS (7 sets, daily range): BP systolic 118–145; BP diastolic 58–71
[2017-01-08 05:45] LABS: HEMATOCRIT 34.8 % (38.0-50.0); MCH 26.8 PG (29.0-34.0); MCHC 30.7 G/DL (30.0-36.0); MEAN PLAT.VOLUME 9.9 uM^3 (9.0-12.4); PLATELET COUNT 429 K/uL (156-360); RBC DIS.WIDTH-CV 19.7 % (11.8-14.6); RBC DIS.WIDTH-SD 61.3 % (39-53); WHITE BLOOD COUNT 10.3 K/uL (4.1-10.2)
[2017-01-08 14:30] LABS: RESEND RESULTS RESEND RESULTS
[2017-01-08 16:04] LABS: C DIFF TOXIN NEGATIVE (NEGATIVE)
[2017-01-08 17:04] LABS: PROBE CHECK PASS; SPECIMEN PROCESSING CONTROL PASS
[2017-01-09 08:14] VITALS: BP 142/81
[2017-01-09 11:54] VITALS: BP 116/57
[2017-01-09] MEDS ORDERED: ASPIR-LOW81 MG PO (15:31)
[2017-01-09] MEDS ORDERED: DUONEB 2.5-0.5 M3 ML PEP (15:31)
[2017-01-09] MEDS ORDERED: DOCUSATE SODIU100 MG PO (15:31)
[2017-01-09] MEDS ORDERED: HEPARIN SO5000 UNIT4 SC (15:31)
[2017-01-09] MEDS ORDERED: BISAC-EVAC10 MG PR (15:31)
[2017-01-09] MEDS ORDERED: Milk Of Magnesia,MOM PO (15:31)
[2017-01-09] MEDS ORDERED: Zeasorb Antifungal T TP (15:31)
[2017-01-09] MEDS ORDERED: HYDROCODON-ACE1 EAC7 PO (15:31)
[2017-01-09] MEDS ORDERED: HYDREA500 MG PO (15:31)
[2017-01-09] MEDS ORDERED: FLORASTOR250 MG PO (15:31)
[2017-01-09] MEDS ORDERED: MYCOSTATIN 100,60 ML PO (15:31)
[2017-01-09] MEDS ORDERED: DIGOXIN250 MCG PO (15:31)
[2017-01-09] MEDS ORDERED: Ocean Nasal 0.65% BOTH NARES (15:31)
[2017-01-09 15:43] VITALS: BP 128/65
[2017-01-10 08:40] VITALS: BP 126/93
[2017-01-10 09:00] VITALS: BP 115/66
[2017-01-10 09:30] VITALS: BP 113/64
[2017-01-10 10:00] VITALS: BP 133/79
[2017-01-10 10:30] VITALS: BP 127/69
== END 2017-01-09 16:28 | DRG 163 ==
LOC: CANRESERV 23:26 → ENRESERV 23:26 → 4EAST 12-22 05:33 → 4WEST 12-22 05:33 → 2SOUTH 12-22 05:33 → ENRESERV 12-22 09:11 → CANRESERV 12-22 09:11 → 2SOUTH 12-22 10:10 → ENRESERV 12-22 10:52 → CANRESERV 12-22 14:15 → ENRESERV 12-22 17:24 → 4WEST 12-22 17:49 → ENRESERV 12-22 17:59 → CANRESERV 12-22 17:59 → 4WEST 12-22 18:42 → ENRESERV 12-22 18:43 → 4WEST 12-22 23:21 → ENRESERV 01-03 14:57 → 4EAST 01-03 16:46
PROVIDERS: Anesthesiology; Internal Medicine; Internal Medicine Cardiovascular Disease; Internal Medicine Critical Care Medicine; Internal Medicine Hematology & Oncology; Internal Medicine Pulmonary Disease; Physician Assistant Medical; Specialist; Surgery; Thoracic Surgery (Cardiothoracic Vascular Surgery)
PROC: 00HU33Z Insertion of Infusion Device into Spinal Canal, Percutaneous Approach (ICD-10-PCS; principal; 2016-12-22)
PROC: 0BTF0ZZ Resection of Right Lower Lung Lobe, Open Approach (ICD-10-PCS; principal; 2016-12-22)
PROC: 3E0S3BZ Introduction of Anesthetic Agent into Epidural Space, Percutaneous Approach (ICD-10-PCS; principal; 2016-12-22)
PROC: 0WC90ZZ Extirpation of Matter from Right Pleural Cavity, Open Approach (ICD-10-PCS; 2016-12-22)
PROC: 03QY0ZZ Repair Upper Artery, Open Approach (ICD-10-PCS; 2016-12-22)
PROC: 30233K1 Transfusion of Nonautologous Frozen Plasma into Peripheral Vein, Percutaneous Approach (ICD-10-PCS; 2016-12-22)
PROC: 30233N1 Transfusion of Nonautologous Red Blood Cells into Peripheral Vein, Percutaneous Approach (ICD-10-PCS; 2016-12-22)
PROC: 5A1955Z Respiratory Ventilation, Greater than 96 Consecutive Hours (ICD-10-PCS; 2016-12-24)
PROC: 0BH18EZ Insertion of Endotracheal Airway into Trachea, Via Natural or Artificial Opening Endoscopic (ICD-10-PCS; 2016-12-24)
DX: C34.31 Malignant neoplasm of lower lobe, right bronchus or lung (principal); D62 Acute posthemorrhagic anemia; B37.0 Candidal stomatitis; E11.65 Type 2 diabetes mellitus with hyperglycemia; I63.9 Cerebral infarction, unspecified; G81.94 Hemiplegia, unspecified affecting left nondominant side; R00.0 Tachycardia, unspecified; J96.00 Acute respiratory failure, unspecified whether with hypoxia or hypercapnia; I97.620 Postprocedural hemorrhage of a circulatory system organ or structure following other procedure; Y83.6 Removal of other organ (partial) (total) as the cause of abnormal reaction of the patient, or of later complication, without mention of misadventure at the time of the procedure; Y92.238 Other place in hospital as the place of occurrence of the external cause; J84.10 Pulmonary fibrosis, unspecified; I27.20 Pulmonary hypertension, unspecified; I08.1 Rheumatic disorders of both mitral and tricuspid valves; J44.9 Chronic obstructive pulmonary disease, unspecified; M25.312 Other instability, left shoulder; D45 Polycythemia vera; D47.3 Essential (hemorrhagic) thrombocythemia; E78.5 Hyperlipidemia, unspecified; F32.9 Major depressive disorder, single episode, unspecified; F41.9 Anxiety disorder, unspecified; I10 Essential (primary) hypertension; I25.10 Atherosclerotic heart disease of native coronary artery without angina pectoris; I25.2 Old myocardial infarction; Z95.1 Presence of aortocoronary bypass graft; Z87.891 Personal history of nicotine dependence; Z87.820 Personal history of traumatic brain injury
CPT/HCPCS: 36600; 70450; 70470; 71010; 71020; 73030; 80048; 80053; 80061; 80162; 80202; 82803; 82948; 83036; 83605; 83735; 84100; 84484; 85014; 85018; 85025; 85027; 85610; 85730; 86850; 86900; 86901; 86920; 87040; 87070; 87077; 87086; 87205; 87493; 87641; 87801; 88300; 88309; 88312; 92610 GN; 93005; 93306; 93880; 93970; 94002; 94003; 94640; 94640 76; 94667; 94668; 94760; 94799; 97530 GO; 97530 GP; 99202; J0131; J0690; J0696; J1100; J1160; J1170; J1644; J1815; J1885; J1940; J2060; J2250; J2370; J2405; J2543; J2704; J2710; J2930; J3010; J3370; J3475; J7040; J7050; J7120; P9016; P9017

== ENCOUNTER 2017-01-09 12:10 | Inpatient (IN) | payer OTHER, MEDICARE ==
[~2017-01-09] VITALS: Ht 160 cm; Wt 76.1 kg
[2017-01-09] MEDS ORDERED: MYCOSTATIN 100,60 ML PO (15:31)
[2017-01-09] MEDS ORDERED: HEPARIN SO5000 UNIT4 SC (15:31)
[2017-01-09] MEDS ORDERED: Ocean Nasal 0.65% BOTH NARES (15:31)
[2017-01-09] MEDS ORDERED: HYDREA500 MG PO (15:31)
[2017-01-09] MEDS ORDERED: Milk Of Magnesia,MOM PO (15:31)
[2017-01-09] MEDS ORDERED: Zeasorb Antifungal T TP (15:31)
[2017-01-09] MEDS ORDERED: DOCUSATE SODIU100 MG PO (15:31)
[2017-01-09] MEDS ORDERED: DUONEB 2.5-0.5 M3 ML PEP (15:31)
[2017-01-09] MEDS ORDERED: BISAC-EVAC10 MG PR (15:31)
[2017-01-09] MEDS ORDERED: DIGOXIN250 MCG PO (15:31)
[2017-01-09] MEDS ORDERED: ASPIR-LOW81 MG PO (15:31)
[2017-01-09] MEDS ORDERED: FLORASTOR250 MG PO (15:31)
[2017-01-09] MEDS ORDERED: HYDROCODON-ACE1 EAC7 PO (15:31)
[2017-01-09 16:45] VITALS: BP 125/71
[2017-01-09 21:21] LABS: POINT-OF-CARE METER ID UU14174215
[2017-01-10 05:32] VITALS: BP 153/67
[2017-01-10 05:44] LABS: HEMATOCRIT 34.2 % (38.0-50.0); MCH 27.5 PG (29.0-34.0); MCV 88.6 FL (86-99); PLATELET COUNT 377 K/uL (156-360); RBC DIS.WIDTH-CV 19.4 % (11.8-14.6); RED BLOOD COUNT 3.86 M/uL (4.00-5.50); WHITE BLOOD COUNT 8.6 K/uL (4.1-10.2)
[2017-01-10 06:16] LABS: ALKALINE PHOSPHATASE 117 IU/L (3-129); ANION GAP 5 MEQ/L (2-14); CHLORIDE 105 MEQ/L (99-109); GFR ESTIMATE (CALCULATED) > 59 mL/min/; GLUCOSE 128 mg/dL (70-99); POTASSIUM 3.9 MEQ/L (3.7-5.4); SAMPLE HEMOLYSIS CHECK 0; SAMPLE ICTERIC CHECK 0; SAMPLE LIPEMIA CHECK 0; SODIUM 139 MEQ/L (136-147); UREA NITROGEN (BUN) 13 mg/dL (9-23)
[2017-01-10 06:20] LABS: TOTAL BILIRUBIN 0.5 MG/DL (0.0-1.0)
[2017-01-10 07:05] LABS: POINT-OF-CARE METER ID UU13113720; POINT-OF-CARE USER ID ENVGAF
[2017-01-10 08:57] LABS: TROP-I INTERPRETATION NEGATIVE; TROPONIN-I 0.14 ng/mL (0.0-0.30)
== END 2017-01-10 08:30 | DRG 56 ==
LOC: 3WEST 12:10
PROVIDERS: Physical Medicine & Rehabilitation Pain Medicine; Student in an Organized Health Care Education/Training Program
DX: I69.354 Hemiplegia and hemiparesis following cerebral infarction affecting left non-dominant side (principal); C34.31 Malignant neoplasm of lower lobe, right bronchus or lung; R07.9 Chest pain, unspecified; R26.9 Unspecified abnormalities of gait and mobility; J44.0 Chronic obstructive pulmonary disease with (acute) lower respiratory infection; J18.9 Pneumonia, unspecified organism; R09.02 Hypoxemia; D62 Acute posthemorrhagic anemia; D45 Polycythemia vera; E11.9 Type 2 diabetes mellitus without complications; E78.5 Hyperlipidemia, unspecified; D50.9 Iron deficiency anemia, unspecified; J81.1 Chronic pulmonary edema; I25.10 Atherosclerotic heart disease of native coronary artery without angina pectoris; I25.2 Old myocardial infarction; K21.9 Gastro-esophageal reflux disease without esophagitis; I10 Essential (primary) hypertension; Z82.3 Family history of stroke; Z82.49 Family history of ischemic heart disease and other diseases of the circulatory system; Z83.3 Family history of diabetes mellitus; Z87.891 Personal history of nicotine dependence; Z90.2 Acquired absence of lung [part of]
CPT/HCPCS: 71010; 80053; 82948; 84484; 85027; 85379; 93005; 94640 76; 94668; 94799; 99202; J1650; J1815

== ENCOUNTER 2017-01-10 08:30 | Inpatient (IN) | payer OTHER, MEDICARE ==
[~2017-01-10] VITALS: Ht 160 cm; Wt 73.2 kg
[2017-01-10] VITALS (8 sets, daily range): BP systolic 126–142; BP diastolic 66–93
[~2017-01-10 08:30] MED LIST changes: +ASPIR-LOW81 MG PO; +BISAC-EVAC10 MG PR; +DIGOXIN250 MCG PO; +DOCUSATE SODIU100 MG PO; +DUONEB 2.5-0.5 M3 ML PEP; +FLORASTOR250 MG PO; +HEPARIN SO5000 UNIT4 SC; +HYDREA500 MG PO; +MYCOSTATIN 100,60 ML PO; +Milk Of Magnesia,MOM PO; +Ocean Nasal 0.65% BOTH NARES; +Zeasorb Antifungal T TP
[2017-01-10 10:11] LABS: METH RESISTANT S AUREUS PCR NEGATIVE (NEGATIVE); PROBE CHECK PASS; SPECIMEN PROCESSING CONTROL PASS
[2017-01-10 13:17] LABS: ADD MIUA? YES; BILIRUBIN NEGATIVE; BLOOD NEGATIVE; COLOR YELLOW ((YELLOW)); GLUCOSE (STRIP) NEGATIVE; KETONES NEGATIVE; LEUKOCYTES NEGATIVE; NITRITE NEGATIVE; PROTEIN (STRIP) NEGATIVE; SPECIFIC GRAVITY 1.012 (1.000-1.030); UROBILINOGEN 0.2 MG/DL (0.2-1.0)
[2017-01-10 14:05] LABS: BACTERIA RARE /HPF; EPITHELIAL CELLS RARE /HPF; MUCUS NONE SEEN /LPF; RED BLOOD CELLS 0-5 /HPF (0-5); UCUL ADDED? NO; WHITE BLOOD CELLS 0-5 /HPF (0-5)
[2017-01-10 14:46] LABS: TROP-I INTERPRETATION NEGATIVE; TROPONIN-I 0.14 ng/mL (0.0-0.30)
[2017-01-10 20:35] LABS: TROP-I INTERPRETATION NEGATIVE; TROPONIN-I 0.12 ng/mL (0.0-0.30)
[2017-01-11 03:45] VITALS: BP 122/57
[2017-01-11 05:21] LABS: EOSINOPHIL (%) 1.9 % (0-5); EOSINOPHIL COUNT 0.2 K/uL (0-0.3); HEMATOCRIT 34.6 % (38.0-50.0); IMMATURE GRANULOCYTE (%) 2.2 % (0.0-0.7); IMMATURE GRANULOCYTE COUNT 0.2 K/uL; INSTRUMENT ABS NEUTROPHIL CT 7.2 K/uL; LYMPHOCYTE COUNT 0.7 K/uL (1.0-2.8); MCH 27.4 PG (29.0-34.0); MCHC 30.9 G/DL (30.0-36.0); MCV 88.7 FL (86-99); MEAN PLAT.VOLUME 10.3 uM^3 (9.0-12.4); MONOCYTE (%) 5.8 % (3-12); MONOCYTE COUNT 0.5 K/uL (0-0.8); NEUTROPHIL (%) 82.1 % (45-76); NEUTROPHIL COUNT 7.2 K/uL (1.8-6.4); PLATELET COUNT 380 K/uL (156-360); RBC DIS.WIDTH-SD 60.2 % (39-53); WHITE BLOOD COUNT 8.8 K/uL (4.1-10.2)
[2017-01-11 05:43] LABS: ALKALINE PHOSPHATASE 121 IU/L (3-129); ANION GAP 7 MEQ/L (2-14); CHLORIDE 102 MEQ/L (99-109); GFR ESTIMATE (CALCULATED) > 59 mL/min/; GLUCOSE 128 mg/dL (70-99); POTASSIUM 4.2 MEQ/L (3.7-5.4); SAMPLE HEMOLYSIS CHECK 0; SAMPLE ICTERIC CHECK 0; SAMPLE LIPEMIA CHECK 0; SODIUM 139 MEQ/L (136-147); UREA NITROGEN (BUN) 13 mg/dL (9-23)
[2017-01-11 05:44] LABS: TOTAL BILIRUBIN 0.8 MG/DL (0.0-1.0)
[2017-01-11 07:15] VITALS: BP 136/66
[2017-01-11 11:29] VITALS: BP 126/59
[2017-01-11 15:29] VITALS: BP 126/70
[2017-01-11 19:12] VITALS: BP 118/65
[2017-01-11 23:02] VITALS: BP 128/63
[2017-01-12] VITALS (7 sets, daily range): BP systolic 113–142; BP diastolic 60–70
[2017-01-13] VITALS (7 sets, daily range): BP systolic 123–133; BP diastolic 58–78
[2017-01-14 03:22] VITALS: BP 137/65
[2017-01-14 08:24] VITALS: BP 128/67
[2017-01-14 12:03] VITALS: BP 134/82
[2017-01-14] MEDS ORDERED: LISINOPRIL10 MG PO (13:20)
[2017-01-14] MEDS ORDERED: NITROPASTE 2%1 GM TD (13:20)
[2017-01-14] MEDS ORDERED: ACETAMINOPHEN325 M1 PO (16:20)
[2017-01-14] MEDS ORDERED: PEPCID20 MG PO (16:21)
== END 2017-01-14 14:28 | DRG 193 ==
LOC: 4WEST 08:30 → ENRESERV 08:32 → 4WEST 08:37 → 4EAST 08:37 → ENRESERV 14:58 → 4EAST 16:32 → ENRESERV 01-12 00:09 → 4EAST 01-12 00:21 → ENRESERV 01-12 00:53 → 3EAST 01-12 01:30
PROVIDERS: Internal Medicine; Student in an Organized Health Care Education/Training Program
DX: J18.9 Pneumonia, unspecified organism (principal); J44.0 Chronic obstructive pulmonary disease with (acute) lower respiratory infection; R07.89 Other chest pain; J90 Pleural effusion, not elsewhere classified; I21.4 Non-ST elevation (NSTEMI) myocardial infarction; K72.90 Hepatic failure, unspecified without coma; R73.9 Hyperglycemia, unspecified; J98.11 Atelectasis; I10 Essential (primary) hypertension; I25.10 Atherosclerotic heart disease of native coronary artery without angina pectoris; E78.5 Hyperlipidemia, unspecified; D45 Polycythemia vera; K21.9 Gastro-esophageal reflux disease without esophagitis; D64.9 Anemia, unspecified; C34.91 Malignant neoplasm of unspecified part of right bronchus or lung; I69.354 Hemiplegia and hemiparesis following cerebral infarction affecting left non-dominant side; I25.2 Old myocardial infarction; Z95.1 Presence of aortocoronary bypass graft; Z90.2 Acquired absence of lung [part of]; Z79.82 Long term (current) use of aspirin; Z86.11 Personal history of tuberculosis; Z87.891 Personal history of nicotine dependence
CPT/HCPCS: 71010; 80053; 80162; 81003; 83880; 84145 90; 84484; 85025; 87040; 87070; 87205; 87641; 87801; 93005; 94640; 94640 76; 94760; 94799; 97530 GP; 99202; J1644; J2543; J7050

== ENCOUNTER 2017-01-13 07:33 | Inpatient (IN) | payer OTHER, MEDICARE ==
[~2017-01-13] VITALS: Ht 160 cm; Wt 68.3 kg
[2017-01-14] MEDS ORDERED: NITROPASTE 2%1 GM TD (13:20)
[2017-01-14] MEDS ORDERED: LISINOPRIL10 MG PO (13:20)
[2017-01-14 15:41] VITALS: BP 134/86
[2017-01-14] MEDS ORDERED: ACETAMINOPHEN325 M1 PO (16:20)
[2017-01-14] MEDS ORDERED: PEPCID20 MG PO (16:21)
[2017-01-15 00:02] VITALS: BP 122/68
[2017-01-15 04:59] VITALS: BP 122/61
[2017-01-15 06:21] LABS: HEMATOCRIT 34.4 % (38.0-50.0); MCH 26.5 PG (29.0-34.0); MCHC 30.2 G/DL (30.0-36.0); MCV 87.5 FL (86-99); PLATELET COUNT 457 K/uL (156-360); RBC DIS.WIDTH-CV 18.2 % (11.8-14.6); RBC DIS.WIDTH-SD 57.7 % (39-53); RED BLOOD COUNT 3.93 M/uL (4.00-5.50); WHITE BLOOD COUNT 8.4 K/uL (4.1-10.2)
[2017-01-15 06:43] LABS: ALKALINE PHOSPHATASE 116 IU/L (3-129); ANION GAP 6 MEQ/L (2-14); CHLORIDE 101 MEQ/L (99-109); GFR ESTIMATE (CALCULATED) > 59 mL/min/; GLUCOSE 140 mg/dL (70-99); POTASSIUM 4.4 MEQ/L (3.7-5.4); SAMPLE HEMOLYSIS CHECK 0; SAMPLE ICTERIC CHECK 0; SAMPLE LIPEMIA CHECK 0; SODIUM 139 MEQ/L (136-147); UREA NITROGEN (BUN) 15 mg/dL (9-23)
[2017-01-15 06:45] LABS: TOTAL BILIRUBIN 0.6 MG/DL (0.0-1.0)
[2017-01-15 15:42] VITALS: BP 130/61
[2017-01-16 06:31] VITALS: BP 136/65
[2017-01-16 15:10] VITALS: BP 135/64
[2017-01-17 04:39] VITALS: BP 132/66
[2017-01-17 15:46] VITALS: BP 139/72
[2017-01-18 05:17] VITALS: BP 135/67
[2017-01-18 16:09] VITALS: BP 129/58
[2017-01-19 05:20] VITALS: BP 133/68
[2017-01-19 05:48] LABS: EOSINOPHIL (%) 3.2 % (0-5); EOSINOPHIL COUNT 0.2 K/uL (0-0.3); HEMATOCRIT 34.2 % (38.0-50.0); IMMATURE GRANULOCYTE (%) 2.7 % (0.0-0.7); IMMATURE GRANULOCYTE COUNT 0.2 K/uL; INSTRUMENT ABS NEUTROPHIL CT 5.1 K/uL; LYMPHOCYTE COUNT 0.9 K/uL (1.0-2.8); MCH 26.5 PG (29.0-34.0); MCHC 30.1 G/DL (30.0-36.0); MCV 88.1 FL (86-99); MEAN PLAT.VOLUME 9.9 uM^3 (9.0-12.4); MONOCYTE (%) 10.2 % (3-12); MONOCYTE COUNT 0.7 K/uL (0-0.8); NEUTROPHIL (%) 71.7 % (45-76); NEUTROPHIL COUNT 5.1 K/uL (1.8-6.4); PLATELET COUNT 496 K/uL (156-360); RBC DIS.WIDTH-CV 17.4 % (11.8-14.6); RBC DIS.WIDTH-SD 55.7 % (39-53); RED BLOOD COUNT 3.88 M/uL (4.00-5.50); WHITE BLOOD COUNT 7.1 K/uL (4.1-10.2)
[2017-01-19 06:04] LABS: ANION GAP 4 MEQ/L (2-14); CHLORIDE 100 MEQ/L (99-109); POTASSIUM 4.4 MEQ/L (3.7-5.4); SAMPLE HEMOLYSIS CHECK 1; SAMPLE ICTERIC CHECK 0; SAMPLE LIPEMIA CHECK 0; SODIUM 137 MEQ/L (136-147)
[2017-01-19 06:10] LABS: GFR ESTIMATE (CALCULATED) > 59 mL/min/; GLUCOSE 156 mg/dL (70-99); UREA NITROGEN (BUN) 11 mg/dL (9-23)
[2017-01-19 15:08] VITALS: BP 123/71
[2017-01-20 04:47] VITALS: BP 155/76
[2017-01-20 15:44] VITALS: BP 120/80
[2017-01-21 04:28] VITALS: BP 159/85
[2017-01-21 10:32] VITALS: BP 157/75
[2017-01-21 15:36] VITALS: BP 153/83
[2017-01-21 23:55] VITALS: BP 143/67
[2017-01-22 06:06] VITALS: BP 143/76
[2017-01-22 15:23] VITALS: BP 139/61
[2017-01-23 06:45] VITALS: BP 145/72
[2017-01-23 15:25] VITALS: BP 136/72
[2017-01-24 05:15] VITALS: BP 136/79
[2017-01-24 15:30] VITALS: BP 157/90
[2017-01-25 01:38] LABS: HEMATOCRIT 35.9 % (38.0-50.0); MCH 26.3 PG (29.0-34.0); MCHC 30.6 G/DL (30.0-36.0); MCV 85.7 FL (86-99); MEAN PLAT.VOLUME 9.6 uM^3 (9.0-12.4); PLATELET COUNT 520 K/uL (156-360); RBC DIS.WIDTH-CV 16.4 % (11.8-14.6); RBC DIS.WIDTH-SD 51.1 % (39-53); RED BLOOD COUNT 4.19 M/uL (4.00-5.50); WHITE BLOOD COUNT 9.1 K/uL (4.1-10.2)
[2017-01-25 02:05] LABS: CHLORIDE 93 mEq/L (99-109); POTASSIUM 3.9 mEq/L (3.7-5.4)
[2017-01-25 02:06] LABS: GLUCOSE 127 mg/dL (70-99)
[2017-01-25 02:07] LABS: TROP-I INTERPRETATION NEGATIVE; TROPONIN-I 0.04 ng/mL (0.0-0.30)
[2017-01-25 02:08] LABS: ANION GAP 3 MEQ/L (2-14)
[2017-01-25 02:10] LABS: GFR ESTIMATE (CALCULATED) > 59 mL/min/
[2017-01-25 02:11] LABS: UREA NITROGEN (BUN) 5 mg/dL (9-23)
[2017-01-25 02:12] LABS: SODIUM 126 mEq/L (136-147)
== END 2017-01-25 02:17 | DRG 56 ==
LOC: DELPENDDIS → 3WEST 07:33 → ENPENDDIS 01-24 → 3WEST 01-25 01:55 → ENPENDDIS 02-02
PROVIDERS: Hospitalist; Internal Medicine; Physical Medicine & Rehabilitation Pain Medicine
PROC: F07M7ZZ Manual Therapy Techniques Treatment of Musculoskeletal System - Whole Body (ICD-10-PCS; principal; 2017-01-14)
DX: I69.951 Hemiplegia and hemiparesis following unspecified cerebrovascular disease affecting right dominant side (principal); J18.9 Pneumonia, unspecified organism; I21.4 Non-ST elevation (NSTEMI) myocardial infarction; C34.31 Malignant neoplasm of lower lobe, right bronchus or lung; C34.92 Malignant neoplasm of unspecified part of left bronchus or lung; I25.10 Atherosclerotic heart disease of native coronary artery without angina pectoris; I63.9 Cerebral infarction, unspecified; I10 Essential (primary) hypertension; E11.65 Type 2 diabetes mellitus with hyperglycemia; J44.0 Chronic obstructive pulmonary disease with (acute) lower respiratory infection; D62 Acute posthemorrhagic anemia; D45 Polycythemia vera; F41.9 Anxiety disorder, unspecified; F32.1 Major depressive disorder, single episode, moderate; K21.9 Gastro-esophageal reflux disease without esophagitis; J90 Pleural effusion, not elsewhere classified; E77.8 Other disorders of glycoprotein metabolism; E87.1 Hypo-osmolality and hyponatremia; Z87.891 Personal history of nicotine dependence; J81.1 Chronic pulmonary edema; R09.02 Hypoxemia; E78.5 Hyperlipidemia, unspecified; D50.9 Iron deficiency anemia, unspecified; R45.87 Impulsiveness; Z85.118 Personal history of other malignant neoplasm of bronchus and lung; Z86.11 Personal history of tuberculosis; Z90.2 Acquired absence of lung [part of]; Z95.1 Presence of aortocoronary bypass graft; I25.2 Old myocardial infarction; Z63.4 Disappearance and death of family member; Z82.3 Family history of stroke; Z82.49 Family history of ischemic heart disease and other diseases of the circulatory system; Z83.3 Family history of diabetes mellitus
CPT/HCPCS: 71010; 80048; 80053; 84484; 85025; 85027; 92507 GN; 92523 GN; 94010; 94640; 94640 76; 94760; 94799; 97110 GO; 97112 GO; 97112 GP; 97530 GP; 97532 GN; 99202; G0283 GO; J1650

== ENCOUNTER 2017-01-25 01:48 | Observation (INO) | payer OTHER, MEDICARE ==
[~2017-01-25] VITALS: Ht 160 cm; Wt 68.5 kg
[~2017-01-25 01:48] MED LIST changes: +ACETAMINOPHEN325 M1 PO; +LISINOPRIL10 MG PO; +NITROPASTE 2%1 GM TD; +PEPCID20 MG PO
[2017-01-25 02:27] VITALS: BP 121/68
[2017-01-25 07:50] VITALS: BP 142/79
[2017-01-25 08:55] LABS: TROP-I INTERPRETATION NEGATIVE; TROPONIN-I 0.05 ng/mL (0.0-0.30)
[2017-01-25 11:38] VITALS: BP 134/60; BP 134/68
[2017-01-25 16:30] VITALS: BP 133/78
[2017-01-25 18:22] LABS: TROP-I INTERPRETATION NEGATIVE; TROPONIN-I 0.04 ng/mL (0.0-0.30)
[2017-01-25 19:53] VITALS: BP 142/68
[2017-01-25 23:45] VITALS: BP 151/76
[2017-01-26 01:34] LABS: TROP-I INTERPRETATION NEGATIVE; TROPONIN-I 0.03 ng/mL (0.0-0.30)
[2017-01-26 07:29] LABS: EOSINOPHIL COUNT 0.2 K/uL (0-0.3); HEMATOCRIT 38.9 % (38.0-50.0); IMMATURE GRANULOCYTE (%) 4.1 % (0.0-0.7); IMMATURE GRANULOCYTE COUNT 0.4 K/uL; INSTRUMENT ABS NEUTROPHIL CT 6.8 K/uL; LYMPHOCYTE COUNT 0.8 K/uL (1.0-2.8); MCH 25.6 PG (29.0-34.0); MCHC 29.8 G/DL (30.0-36.0); MCV 85.9 FL (86-99); MEAN PLAT.VOLUME 9.6 uM^3 (9.0-12.4); MONOCYTE (%) 7.8 % (3-12); MONOCYTE COUNT 0.7 K/uL (0-0.8); NEUTROPHIL (%) 76.4 % (45-76); NEUTROPHIL COUNT 6.8 K/uL (1.8-6.4); PLATELET COUNT 524 K/uL (156-360); RBC DIS.WIDTH-CV 16.5 % (11.8-14.6); RED BLOOD COUNT 4.53 M/uL (4.00-5.50); WHITE BLOOD COUNT 8.9 K/uL (4.1-10.2)
[2017-01-26 07:49] LABS: ANION GAP 5 MEQ/L (2-14); CHLORIDE 100 MEQ/L (99-109); GFR ESTIMATE (CALCULATED) > 59 mL/min/; GLUCOSE 112 mg/dL (70-99); POTASSIUM 4.3 MEQ/L (3.7-5.4); SAMPLE HEMOLYSIS CHECK 0; SAMPLE ICTERIC CHECK 0; SAMPLE LIPEMIA CHECK 0; UREA NITROGEN (BUN) 7 mg/dL (9-23)
[2017-01-26 07:53] LABS: SODIUM 140 MEQ/L (136-147)
[2017-01-26 08:03] VITALS: BP 140/81
[2017-01-26 11:14] VITALS: BP 137/73
[2017-01-26 13:49] LABS: TROP-I INTERPRETATION NEGATIVE; TROPONIN-I 0.03 ng/mL (0.0-0.30)
[2017-01-26 15:55] VITALS: BP 121/71
[2017-01-26 20:27] VITALS: BP 143/78
[2017-01-26 20:35] LABS: TROP-I INTERPRETATION NEGATIVE; TROPONIN-I 0.03 ng/mL (0.0-0.30)
[2017-01-26 23:59] VITALS: BP 133/79
[2017-01-27 03:57] VITALS: BP 140/85
[2017-01-27 04:19] LABS: HEMATOCRIT 39.4 % (38.0-50.0); MCHC 30.2 G/DL (30.0-36.0); MEAN PLAT.VOLUME 9.7 uM^3 (9.0-12.4); PLATELET COUNT 607 K/uL (156-360); RBC DIS.WIDTH-CV 16.6 % (11.8-14.6); RBC DIS.WIDTH-SD 51.8 % (39-53); RED BLOOD COUNT 4.58 M/uL (4.00-5.50); WHITE BLOOD COUNT 10.2 K/uL (4.1-10.2)
[2017-01-27 04:40] LABS: TROP-I INTERPRETATION NEGATIVE; TROPONIN-I 0.04 ng/mL (0.0-0.30)
[2017-01-27 08:12] VITALS: BP 149/79
[2017-01-27 12:15] VITALS: BP 146/70
[2017-01-27] MEDS ORDERED: ZOFRAN4 MG/2 ML IV (14:08)
== END 2017-01-27 13:18 ==
LOC: ENRESERV 01:48 → 3EAST 01:48
PROVIDERS: Hospitalist; Internal Medicine
DX: R07.89 Other chest pain (principal); C34.31 Malignant neoplasm of lower lobe, right bronchus or lung; I25.10 Atherosclerotic heart disease of native coronary artery without angina pectoris; I44.1 Atrioventricular block, second degree; I25.2 Old myocardial infarction; I49.5 Sick sinus syndrome; Z87.01 Personal history of pneumonia (recurrent); J44.9 Chronic obstructive pulmonary disease, unspecified; I10 Essential (primary) hypertension; D45 Polycythemia vera; F41.9 Anxiety disorder, unspecified; F32.9 Major depressive disorder, single episode, unspecified; M19.90 Unspecified osteoarthritis, unspecified site; K21.9 Gastro-esophageal reflux disease without esophagitis; E11.65 Type 2 diabetes mellitus with hyperglycemia; I69.354 Hemiplegia and hemiparesis following cerebral infarction affecting left non-dominant side; Z95.1 Presence of aortocoronary bypass graft; E87.1 Hypo-osmolality and hyponatremia; Z79.82 Long term (current) use of aspirin; Z82.49 Family history of ischemic heart disease and other diseases of the circulatory system; Z83.3 Family history of diabetes mellitus; Z82.3 Family history of stroke
CPT/HCPCS: 71020; 80048; 84484; 85025; 85027; 93005; 94640 76; 94667; 94668; 94799; 97530 GO; G0378; G8978 GP CJ; G8979 GP CI; J1644

== ENCOUNTER 2017-01-26 08:26 | Inpatient (IN) | payer OTHER, MEDICARE ==
[~2017-01-26] VITALS: Ht 160 cm; Wt 64.5 kg
[2017-01-27 13:42] VITALS: BP 114/69
[2017-01-27] MEDS ORDERED: ZOFRAN4 MG/2 ML IV (14:08)
[2017-01-27 15:44] VITALS: BP 128/76
[2017-01-27 23:52] VITALS: BP 136/70
[2017-01-28 05:34] VITALS: BP 144/67
[2017-01-28 06:09] LABS: HEMATOCRIT 39.2 % (38.0-50.0); MCHC 30.6 G/DL (30.0-36.0); MCV 84.8 FL (86-99); MEAN PLAT.VOLUME 9.2 uM^3 (9.0-12.4); PLATELET COUNT 494 K/uL (156-360); RBC DIS.WIDTH-CV 16.8 % (11.8-14.6); RBC DIS.WIDTH-SD 51.7 % (39-53); RED BLOOD COUNT 4.62 M/uL (4.00-5.50); WHITE BLOOD COUNT 9.1 K/uL (4.1-10.2)
[2017-01-28 08:10] LABS: ALKALINE PHOSPHATASE 84 IU/L (3-129); ANION GAP 10 MEQ/L (2-14); CHLORIDE 102 MEQ/L (99-109); GFR ESTIMATE (CALCULATED) > 59 mL/min/; GLUCOSE 115 mg/dL (70-99); POTASSIUM 3.6 MEQ/L (3.7-5.4); SAMPLE HEMOLYSIS CHECK 0; SAMPLE ICTERIC CHECK 0; SAMPLE LIPEMIA CHECK 0; SODIUM 141 MEQ/L (136-147); TOTAL BILIRUBIN 0.4 MG/DL (0.0-1.0); UREA NITROGEN (BUN) 10 mg/dL (9-23)
[2017-01-28 15:18] VITALS: BP 138/71
[2017-01-29 05:19] VITALS: BP 142/69
[2017-01-29 16:02] VITALS: BP 131/74
[2017-01-30 16:02] VITALS: BP 145/73
[2017-01-31 06:17] VITALS: BP 142/82
[2017-01-31 15:51] VITALS: BP 163/72
[2017-02-01 05:25] VITALS: BP 147/81
[2017-02-01 05:27] LABS: HEMATOCRIT 36.9 % (38.0-50.0); MCH 25.6 PG (29.0-34.0); MCHC 30.4 G/DL (30.0-36.0); MCV 84.2 FL (86-99); MEAN PLAT.VOLUME 9.8 uM^3 (9.0-12.4); PLATELET COUNT 505 K/uL (156-360); RBC DIS.WIDTH-CV 16.3 % (11.8-14.6); RBC DIS.WIDTH-SD 50.2 % (39-53); RED BLOOD COUNT 4.38 M/uL (4.00-5.50); WHITE BLOOD COUNT 9.5 K/uL (4.1-10.2)
[2017-02-01 05:58] LABS: ALKALINE PHOSPHATASE 77 IU/L (3-129); ANION GAP 8 MEQ/L (2-14); CHLORIDE 105 MEQ/L (99-109); GFR ESTIMATE (CALCULATED) > 59 mL/min/; GLUCOSE 110 mg/dL (70-99); POTASSIUM 3.8 MEQ/L (3.7-5.4); SAMPLE HEMOLYSIS CHECK 0; SAMPLE ICTERIC CHECK 0; SAMPLE LIPEMIA CHECK 0; SODIUM 141 MEQ/L (136-147); UREA NITROGEN (BUN) 10 mg/dL (9-23)
[2017-02-01 06:02] LABS: TOTAL BILIRUBIN 0.3 MG/DL (0.0-1.0)
[2017-02-01 06:45] VITALS: BP 144/81
[2017-02-01 15:41] VITALS: BP 143/71
[2017-02-02 05:48] VITALS: BP 150/77
[2017-02-02 07:28] VITALS: BP 138/79
[2017-02-02] MEDS ORDERED: ALPRAZOLAM0.25 M2 PO (12:52)
[2017-02-02] MEDS ORDERED: ADVAIR HFA120 INHAL1 IH (12:52)
[2017-02-02] MEDS ORDERED: HYDREA500 MG PO (12:52)
[2017-02-02] MEDS ORDERED: DIGOXIN250 MCG PO (12:52)
[2017-02-02] MEDS ORDERED: IRON325 M1 PO (12:52)
[2017-02-02] MEDS ORDERED: LIPITOR40 MG PO (12:52)
[2017-02-02] MEDS ORDERED: NITROPASTE 2%1 GM TD (12:52)
[2017-02-02] MEDS ORDERED: VENTOLIN HFA18 GM IH (12:52)
[2017-02-02] MEDS ORDERED: METOPROLOL SUCC50 MG PO (12:52)
[2017-02-02] MEDS ORDERED: ASPIR-LOW81 MG PO (12:52)
[2017-02-02] MEDS ORDERED: PEPCID20 MG PO (12:52)
[2017-02-02] MEDS ORDERED: DUONEB 2.5-0.5 M3 ML PEP (12:52)
[2017-02-02] MEDS ORDERED: LISINOPRIL10 MG PO (12:52)
[2017-02-02 16:05] VITALS: BP 12/62
== END 2017-02-02 16:15 | disposition home health service (06) | DRG 56 ==
LOC: 3WEST 08:26 → ENPENDDIS 02-02 → 3WEST 02-02 16:15
PROVIDERS: Physical Medicine & Rehabilitation Pain Medicine
PROC: F07M0ZZ Range of Motion and Joint Mobility Treatment of Musculoskeletal System - Whole Body (ICD-10-PCS; principal; 2017-01-27)
DX: I69.354 Hemiplegia and hemiparesis following cerebral infarction affecting left non-dominant side (principal); Z90.2 Acquired absence of lung [part of]; I25.10 Atherosclerotic heart disease of native coronary artery without angina pectoris; R26.9 Unspecified abnormalities of gait and mobility; K21.9 Gastro-esophageal reflux disease without esophagitis; J18.9 Pneumonia, unspecified organism; J44.0 Chronic obstructive pulmonary disease with (acute) lower respiratory infection; I25.2 Old myocardial infarction; I10 Essential (primary) hypertension; E78.5 Hyperlipidemia, unspecified; E11.65 Type 2 diabetes mellitus with hyperglycemia; D50.9 Iron deficiency anemia, unspecified; Z87.891 Personal history of nicotine dependence; I21.4 Non-ST elevation (NSTEMI) myocardial infarction; R09.02 Hypoxemia; J81.1 Chronic pulmonary edema; D62 Acute posthemorrhagic anemia; F41.9 Anxiety disorder, unspecified; F32.9 Major depressive disorder, single episode, unspecified; J90 Pleural effusion, not elsewhere classified; R00.0 Tachycardia, unspecified; E77.8 Other disorders of glycoprotein metabolism; E88.09 Other disorders of plasma-protein metabolism, not elsewhere classified; D75.1 Secondary polycythemia; R41.0 Disorientation, unspecified
CPT/HCPCS: 80053; 85027; 92523 GN; 94640; 94640 76; 94668; 94760; 94799; 97110 GO; 97112 GO; 97530 GP; 97532 GN; J1650

== ENCOUNTER 2017-02-11 18:48 | Inpatient (IN) | payer OTHER, MEDICARE ==
[~2017-02-11] VITALS: Ht 160 cm; Wt 60.0 kg
[~2017-02-11 18:48] MED LIST changes: +ADVAIR HFA120 INHAL1 IH; +ZOFRAN4 MG/2 ML IV
[2017-02-11 19:52] LABS: EOSINOPHIL (%) 1.3 % (0-5); EOSINOPHIL COUNT 0.1 K/uL (0-0.3); HEMATOCRIT 40.2 % (38.0-50.0); IMMATURE GRANULOCYTE (%) 1.3 % (0.0-0.7); IMMATURE GRANULOCYTE COUNT 0.1 K/uL; INSTRUMENT ABS NEUTROPHIL CT 6.2 K/uL; LYMPHOCYTE COUNT 0.7 K/uL (1.0-2.8); MCH 24.6 PG (29.0-34.0); MCHC 30.1 G/DL (30.0-36.0); MCV 81.7 FL (86-99); MONOCYTE (%) 6.4 % (3-12); MONOCYTE COUNT 0.5 K/uL (0-0.8); NEUTROPHIL COUNT 6.2 K/uL (1.8-6.4); PLATELET COUNT 411 K/uL (156-360); RBC DIS.WIDTH-CV 15.9 % (11.8-14.6); RBC DIS.WIDTH-SD 46.9 % (39-53); RED BLOOD COUNT 4.92 M/uL (4.00-5.50); WHITE BLOOD COUNT 7.7 K/uL (4.1-10.2)
[2017-02-11 19:58] LABS: CHLORIDE 108 mEq/L (99-109); INTER. NORMALIZED RATIO 1.4; POTASSIUM 3.6 mEq/L (3.7-5.4); PROTHROMBIN TIME 15.5 SEC (10.2-12.9); SODIUM 143 mEq/L (136-147)
[2017-02-11 20:00] LABS: GLUCOSE 121 mg/dL (70-99); PTT 30.7 SEC (25-37)
[2017-02-11 20:01] LABS: ANION GAP 9 MEQ/L (2-14)
[2017-02-11 20:04] LABS: GFR ESTIMATE (CALCULATED) > 59 mL/min/ (58.99-99999)
[2017-02-11 20:05] LABS: UREA NITROGEN (BUN) 6 mg/dL (9-23)
[2017-02-11 20:12] LABS: TROP-I INTERPRETATION NEGATIVE; TROPONIN-I 0.04 ng/mL (0.0-0.30)
[2017-02-12] MEDS ORDERED: LO-DOSE ASPIRIN81 M2 PO (02:01)
[2017-02-12] MEDS ORDERED: FERROUS SULFATE PO (02:04)
[2017-02-12 03:25] VITALS: BP 151/88
[2017-02-12 06:46] LABS: TROP-I INTERPRETATION NEGATIVE; TROPONIN-I 0.05 ng/mL (0.0-0.30)
[2017-02-12 08:00] VITALS: BP 140/62
[2017-02-12 11:57] VITALS: BP 133/89
[2017-02-12 13:25] LABS: TROP-I INTERPRETATION NEGATIVE; TROPONIN-I 0.04 ng/mL (0.0-0.30)
[2017-02-12 15:28] VITALS: BP 127/81
[2017-02-12 20:19] VITALS: BP 135/85
[2017-02-12 23:00] VITALS: BP 146/84
[2017-02-13 04:28] VITALS: BP 147/81
[2017-02-13 06:34] LABS: IRON 18 MCG/DL (35-150)
[2017-02-13 06:51] LABS: Estimated Average Glucose 123 mg/dL (70-123); HEMOGLOBIN A1c (GLYCOHEMOGLOB) 5.9 % HGB (Below 5.7)
[2017-02-13 07:45] LABS: FERRITIN 92 NG/ML (22-322)
[2017-02-13 07:55] LABS: POINT-OF-CARE METER ID UU13113781; POINT-OF-CARE USER ID ENVKC36
[2017-02-13 08:00] VITALS: BP 139/82
[2017-02-13 11:18] VITALS: BP 132/68
[2017-02-13 11:34] LABS: POINT-OF-CARE METER ID UU14174216; POINT-OF-CARE USER ID ENVKC36
[2017-02-13 16:00] VITALS: BP 150/71
[2017-02-13 16:40] LABS: POINT-OF-CARE METER ID UU13113698; POINT-OF-CARE USER ID ENVKC36
[2017-02-13 20:50] VITALS: BP 150/89
[2017-02-13 21:27] LABS: POINT-OF-CARE METER ID UU14174216
[2017-02-13 23:29] VITALS: BP 140/99
[2017-02-14 03:45] VITALS: BP 128/74
[2017-02-14 07:55] LABS: POINT-OF-CARE METER ID UU13113781
[2017-02-14 09:56] VITALS: BP 154/80
[2017-02-14 11:18] LABS: POINT-OF-CARE METER ID UU14314088
[2017-02-14 11:45] VITALS: BP 137/81
== END 2017-02-14 15:19 | disposition home or self-care (01) | DRG 190 ==
LOC: EME 18:48 → 4EAST 02-12 01:57 → EDOF 02-12 01:57 → ENRESERV 02-12 01:58 → 4EAST 02-12 03:25
PROVIDERS: Emergency Medicine; Internal Medicine
DX: J44.1 Chronic obstructive pulmonary disease with (acute) exacerbation (principal); J44.0 Chronic obstructive pulmonary disease with (acute) lower respiratory infection; J18.9 Pneumonia, unspecified organism; D45 Polycythemia vera; E11.9 Type 2 diabetes mellitus without complications; E78.5 Hyperlipidemia, unspecified; I10 Essential (primary) hypertension; I25.10 Atherosclerotic heart disease of native coronary artery without angina pectoris; K21.9 Gastro-esophageal reflux disease without esophagitis; D50.9 Iron deficiency anemia, unspecified; F32.9 Major depressive disorder, single episode, unspecified; F41.9 Anxiety disorder, unspecified; E88.09 Other disorders of plasma-protein metabolism, not elsewhere classified; I69.354 Hemiplegia and hemiparesis following cerebral infarction affecting left non-dominant side; Z85.118 Personal history of other malignant neoplasm of bronchus and lung; Z87.891 Personal history of nicotine dependence; I25.2 Old myocardial infarction; Z95.1 Presence of aortocoronary bypass graft
CPT/HCPCS: 71010; 71020; 71275; 80048; 82728; 82948; 83036; 83540; 83605; 83880; 84484; 85025; 85379; 85610; 85730; 87040; 87493; 93005; 94640; 94640 76; 94667; 94668; 97530 GP; 99281; 99285; J1644; J2405